=== PATIENT | female | born 1950 | race Caucasian/White ===

== ENCOUNTER 2017-01-23 17:04 | Emergency (ER) | payer MEDICARE, OTHER ==
[~2017-01-23] VITALS: Ht 157.5 cm; Wt 69.0 kg
[2017-01-23 17:10] VITALS: BP 201/112; PULSE 84; RESP 16; TEMP 98.6; O2SAT 98
[2017-01-23] MEDS ORDERED: PERC5TAB12 PO (17:26)
[2017-01-23] MEDS ORDERED: LORA1TAB12 PO (17:26)
[2017-01-23] MEDS ORDERED: LOSA50TA PO (17:26)
[2017-01-23] MEDS ORDERED: CLIN1CAP5 PO (17:58)
--- NOTE | 2017-01-23 18:00 | PD ---
HPI Chief Complaint: Pain: Acute or Chronic Time Seen by Provider: 17:58 Travel History International Travel<30 days: No Contact w/Intl Traveler<30days: No Traveled to known affect area: No History of Present Illness HPI 66-year-old female with a history of hypertension presents to the emergency department for evaluation of right nipple pain for 3 days. Patient states that her right nipple is red and tender to touch for the past 3 days. Denies any fever, chills, nausea, vomiting, mass or lump, nipple discharge. Denies any history of breast cancer. Symptoms are moderate in severity. Aggravated with palpation. Alleviated with nothing touching her nipple. No other complaints. PFSH Past Medical History Hx Anticoagulant Therapy: No Arthritis: Yes (RA) Cardiovascular Problems: Yes (HTN) Diabetes: No Hypertension: Yes Tetanus Vaccination: > 5 Years Influenza Vaccination: Yes ?: Not Menopausal: Yes Past Surgical History Cholecystectomy: Yes Hysterectomy: Yes Social History Alcohol Use: No Tobacco Use: Yes (/ PPD) Substance Use: No Allergies-Medications (Allergen,Severity, Reaction): Coded Allergies: Sulfa (Verified Allergy, Severe, 01/23/17) Reported Meds & Prescriptions Reported Meds & Active Scripts Active Clindamycin (Clindamycin HCl) 150 Mg Cap 300 Mg PO Q6H 10 Days Reported Percocet (Oxycodone-Acetaminophen) 5-325 mg Tab 1 Tab PO Q6H PRN Lorazepam 1 Mg Tab 1 Mg PO TID Losartan (Losartan Potassium) 50 Mg Tab 50 Mg PO BID Review of Systems Except as stated in HPI: all other systems reviewed are Neg Physical Exam Narrative GENERAL: Well-nourished and well-developed pleasant patient in no acute distress who is nontoxic appearing. SKIN: Warm and dry. HEAD: Normocephalic and atraumatic. EYES: No injection, drainage, or hyphema noted. PERRLA. EOMI. ENT: No nasal drainage noted. Oropharynx is clear. NECK: Supple and the trachea is midline. CARDIOVASCULAR: Regular rate and rhythm. RESPIRATORY: Breath sounds are equal bilaterally with no accessory muscle use, wheezing, rhonchi, or crackles. BREAST: Symmetrical. Right nipple is swollen and erythematous and exquisitely tender to palpation. No abscess, mass, nipple discharge or drainage. Performed in the presence of a female nurse. MUSCULOSKELETAL: No obvious deformities, swelling, cyanosis, or ecchymosis is present throughout the upper and lower extremities. Patient has full range of motion without any signs of neurovascular compromise. NEUROLOGICAL: Awake, alert, and oriented. Normal speech and gait. Cranial nerves are grossly intact. Data Data Last Documented VS Vital Signs Date Time Temp Pulse Resp B/P Pulse Ox O2 Delivery O2 Flow Rate FiO2 01/23/17 17:10 98.6 84 16 201/112 98 MDM Medical Decision Making Medical Screen Exam Complete: Yes Emergency Medical Condition: Yes Differential Diagnosis Cellulitis versus ductal inflammation versus malignancy Narrative Course 66-year-old female presents to the emergency department for evaluation of right nipple redness and pain. Patient is afebrile, vital signs are stable. The right nipple is swollen, red and tender. We'll treat the patient with clindamycin for possible infection however did discuss with her that this could be secondary to malignancy. She is to follow-up with her PCP within the next week. Patient verbalizes understanding and is in agreement with treatment plan. I discussed the case with my attending physician Dr. Onofre who is aware of the patients history, physical examination findings, and treatment plan. Diagnosis Primary Impression: Nipple pain Referrals: [employer] Operator Patient Instructions: General Instructions Additional Instructions: Apply warm compresses to the area. Take medication as prescribed with food and a full glass of water. Follow-up with your Primary Care Physician or a floor grinder. There is a possibility this could be cancerous. It is important you follow-up. Return to the ED for any acute worsening of symptoms. Med/Other Pt SpecificInfo: Prescription(s) given Scripts Clindamycin 150 Mg [id number] Mg PO Q6H 10 Days Ref 0 Prov:Agustin Onofre MD 01/23/17 Disposition: 01 DISCHARGE HOME Condition: Stable Sil Harris Jan 23, 2017 18:00
== END 2017-01-23 18:13 | disposition home or self-care (01) ==
LOC: PHEFT 17:04
DX: N64.4 Mastodynia (principal); L53.9 Erythematous condition, unspecified; I10 Essential (primary) hypertension; F17.200 Nicotine dependence, unspecified, uncomplicated; Z87.39 Personal history of other diseases of the musculoskeletal system and connective tissue
CPT/HCPCS: 99283